=== PATIENT | female | born 1950 | race Caucasian/White ===

== ENCOUNTER → 2017-05-03 | Outpatient (CLI) | payer OTHER | END | disposition home or self-care (01) | LOC: C.PATHSPEC 14:35 | PROVIDERS: ATTEND Urology | DX: R31.0 Gross hematuria (principal) ==

== ENCOUNTER 2017-07-16 06:06 | Day surgery (SDC) | payer OTHER ==
[2017-07-03 11:17] VITALS: Ht 162.6 cm; Wt 86.6 kg
--- NOTE | 2017-07-03 12:01 | PAT Medication Instructions ---
Service Date Jul 03, 2017. Current Home Medication List Apixaban (Eliquis), 5 MG PO BID Aspirin (Aspirin Ec), 162 MG PO QAM Atorvastatin (Lipitor), 20 MG PO HS Cholecalciferol (Vitamin D3), 1 TAB PO QAM Coenzyme Q10 (Ubidecarenone) (Co Q10), 100 MG PO HS Fish Oil ([place]-3), 1 CAP PO QAM Levothyroxine Sodium (Levothyroxine Sodium), 1 TAB PO DAILYBB Lisinopril (Zestril), 10 MG PO QAM Lorazepam (Ativan), 0.5 MG PO BID PRN for PRN [Cardizem], 120 MG PO QAM Medication Instructions For Your Scheduled Surgery - Hold the following medications 3 days prior to surgery per Cardiology: Apixaban (Eliquis), 5 MG PO BID - Hold the following medications as of 07/04/17: Coenzyme Q10 (Ubidecarenone) (Co Q10), 100 MG PO HS Fish Oil ([place]-3), 1 CAP PO QAM - Hold the following medications the morning of surgery: Lisinopril (Zestril), 10 MG PO QAM Cholecalciferol (Vitamin D3), 1 TAB PO QAM - Take the following medications the morning of surgery with a sip of water OTHERWISE NOTHING TO EAT OR DRINK AFTER MIDNIGHT: [Cardizem], 120 MG PO QAM Lorazepam (Ativan), 0.5 MG PO BID PRN for PRN Levothyroxine Sodium (Levothyroxine Sodium), 1 TAB PO DAILYBB Aspirin (Aspirin Ec), 162 MG PO QAM (okay to continue per surgeon) - Take the following medications as scheduled the night before surgery: Atorvastatin (Lipitor), 20 MG PO HS Lorazepam (Ativan), 0.5 MG PO BID PRN for PRN If you have any questions please call us at [phone] or [phone] or [phone]
--- NOTE | 2017-07-03 12:48 | DIAGNOSTIC IMAGING REPORT ---
CHEST 2 VIEWS ROUTINE CLINICAL HISTORY: Preoperative chest COMPARISON STUDY: No previous studies for comparison. FINDINGS: The cardiac and mediastinal contours are normal. There is no evidence of focal pulmonary consolidation. There is no evidence of failure. No pleural effusions are visualized.[ IMPRESSION: No active disease in the chest. Electronically signed by: José Antonio White M.D. 07/03/2017 12:47 PM Dictated Date/Time: 07/03/2017 12:47 PM
[2017-07-03 12:55] LABS: BASO % 1.4 %; BASO ABS # 0.09 K/uL (0-0.2); COMPLETE YES; EOS % 3.7 %; HEMATOCRIT 38.2 % (37-47); IG% 0.2 %; LYMPH % 30.4 %; LYMPH ABS # 1.97 K/uL (1.2-3.4); MEAN CELL VOLUME 82.3 fL (80-100); MEAN CORPUSCULAR HEMOGLOBIN 25.2 pg (25-34); MEAN CORPUSCULAR HGB CONC 30.6 g/dl (32-36); MEAN PLATELET VOLUME 10.9 fL (7.4-10.4); MONO % 9.6 %; NEUT % 54.7 %; PLATELET COUNT 354 K/uL (130-400); RED BLOOD COUNT 4.64 M/uL (4.2-5.4); WHITE BLOOD COUNT 6.47 K/uL (4.8-10.8)
[2017-07-03 12:55] LABS: URINE APPEARANCE CLEAR (CLEAR); URINE BILIRUBIN NEG (NEG); URINE COLOR YELLOW; URINE NITRITE NEG (NEG); URINE PH 5.5 (4.5-7.5); URINE SPECIFIC GRAVITY 1.015 (1.000-1.030); UROBILINOGEN NEG (NEG)
[2017-07-03 13:02] LABS: MANUAL MICROSCOPIC REQUIRED? NO; REVIEW REQ? NO
[2017-07-03 13:19] LABS: BUN/CREATININE RATIO 10.5 (10-20); CALCIUM 10.4 mg/dl (8.5-10.1); CREATININE 0.96 mg/dl (0.60-1.20); POTASSIUM 4.4 mmol/L (3.5-5.1)
[~2017-07-16] VITALS: Ht 162.6 cm; Wt 86.6 kg
[~2017-07-16 06:06] MED LIST: APIX1TAB3 PO; ASPI81TA28 PO; ATOR-22 PO; CARDIZEM PO; CHOL1000 PO; CIPROFLOXACIN / D5W 400 MG IV SCH; COEN1CAP28 PO; LACTATED RINGER'S 1000ML 1,000 ML IV SCH; LACTATED RINGER'S 1000ML 500 ML IV ONE; LEVO88TA3 PO; LISI-461 PO; LORA-741 PO; OMEG10007 PO
[2017-07-16] MEDS ORDERED: EpHEDrine SULFATE INJ 50 MG/ML AMP IV PRN (06:45)
[2017-07-16] MEDS ORDERED: HYDROmorphone INJ 0.5 MG/0.5 ML SYR IV PRN (06:45)
[2017-07-16] MEDS ORDERED: FENTANYL CITRATE INJ 50 MCG/1 ML 2 ML VIAL IV PRN (06:45)
[2017-07-16] MEDS ORDERED: ONDANSETRON INJ 2 MG/ML 2 ML VIAL IV PRN (06:45)
[2017-07-16] MEDS ORDERED: ATROPINE SULFATE 0.1 MG/ML 5ML SYR IV PRN (06:45)
[2017-07-16 06:52] VITALS: BP 127/67; PULSE 75; TEMP 37.2; O2SAT 92
[2017-07-16] MEDS ORDERED: DEXAMETHASONE SOD INJ 4 MG/ML VIAL ONE (06:58)
[2017-07-16] MEDS ORDERED: FENTANYL CITRATE INJ 50 MCG/1 ML 2 ML VIAL ONE (06:58)
[2017-07-16] MEDS ORDERED: PROPOFOL IV EMULSION 10 MG/ML 20 ML VIAL IV ONE (06:58)
[2017-07-16] MEDS ORDERED: LIDOCAINE HCL 2% 2 ML VIAL (20MG/ML) ONE (06:58)
[2017-07-16] MEDS ORDERED: MIDAZOLAM HCL 1 MG/ML 2ML VIAL ONE (06:58)
[2017-07-16] MEDS ORDERED: ONDANSETRON INJ 2 MG/ML 2 ML VIAL ONE (06:58)
--- NOTE | 2017-07-16 08:21 | History & Physical Bridge Note ---
H&P Re-Evaluation Bridge Note: I have examined the patient, reviewed the History & Physical and in the interval since the performance of the History & Physical I have noted the following changes of clinical significance: No changes noted
[2017-07-16] MEDS ORDERED: EpHEDrine SULFATE 50MG/5ML SYR ONE (08:56)
[2017-07-16] MEDS ORDERED: PHENYLEPHRINE 100MCG/ML 5ML SYR ONE (08:56)
[2017-07-16] MEDS ORDERED: PHEN95TA14 PO (09:07)
[2017-07-16] MEDS ORDERED: CIPR-255 PO (09:07)
[2017-07-16] MEDS ORDERED: SODIUM CHLORIDE 0.9% 1000ML 1,000 ML IV SCH (09:08)
[2017-07-16] MEDS ORDERED: PHENAZOPYRIDINE HCL 200 MG TAB PO STA (09:08)
--- NOTE | 2017-07-16 09:08 | Discharge Instructions ---
Discharge Instructions Date of Service Jul 16, 2017. Admission Reason for Admission: Bladder Tumor Discharge Discharge Diagnosis / Problem: Bladder tumor Discharge Goals Goal(s): Decrease discomfort, Improve function, Increase independence, Improve disease control Activity Recommendations Activity Limitations: resume your previous activity Lifting Limitations: none Exercise/Sports Limitations: none May Resume Sexual Activity: when tolerated Shower/Bathe: no limitations Driving or Machine Use: resume 1 day after discharge . Instructions / Follow-Up Instructions / Follow-Up Please resume your blood thinning medications in 48 hours. Current Hospital Diet Patient's current hospital diet: Discharge Diet Recommended Diet: Regular Diet Procedures Procedures Performed: Transurethral Resection Bladder Tumor Pending Studies Studies pending at discharge: no Medical Emergencies . Who to Call and When: Medical Emergencies: If at any time you feel your situation is an emergency, please call 911 immediately. . Non-Emergent Contact Non-Emergency issues call your: Urologist Call Non-Emergent contact if: you have a fever, temperature is above 101.5, your pain is not controlled, your pain is worsening . . "Provider Documentation" section prepared by Vivek Yuan. . VTE Core Measure Inpt VTE Proph given/why not?: Other Anticoagulation
--- NOTE | 2017-07-16 09:13 | [facility] Operative Report ---
Operative Report Operative Date Jul 16, 2017. 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 Appropriate consent reviewed and completed, and the patient was transported to the operating suite where she received appropriate preoperative antibiotics and general anesthesia. She was placed in dorsal lithotomy position where she was sterilely prepped and draped in standard fashion. In the case by passing a 24 [place] resectoscope with 30 lens and visual obturator. Maximal bladder was conducted utilizing both a 30 lens and a 70 lens. Ureteral orifices were in orthotopic position and immediately lateral to the right ureteral orifice I encountered papillary appearing bladder tumor. There were 2 primary tumors, each approximately 1.5 cm in largest dimension with a carpeting of low height papillary appearing tumor between the 2. In total, I estimate a 4 cm area showed evidence of disease. Following my full inspection, I exchanged visual obturator for a resecting loop and element. I resected the 2 largest tumors and fulgurated the base of all of the small papillary fronds that were located between the 2. I ensured excellent hemostasis and irrigated all bladder tumor fragments out of the bladder and passed them off the table as a specimen. After confirming complete treatment of the tumor, I concluded the case. Patient was extubated and taken to the PACU in stable condition. I attest to the content of the Intraoperative Record and any orders documented therein. Any exceptions are noted below.
[2017-07-16] MEDS ORDERED: OXYCODONE/ACETAMINOPHEN 5-325 TAB PO PRN ×2 (09:15)
[2017-07-16] MEDS ORDERED: ACETAMINOPHEN 325 MG TAB PO PRN (09:15)
--- NOTE | 2017-07-16 09:42 | Anesthesiology Progress Note ---
Anesthesia Post Op Note Date & Time Jul 16, 2017 at 09:42 Vital Signs Pain Intensity: 0 Vital Signs Past 12 Hours Date Time Temp Pulse Resp B/P (MAP) Pulse Ox O2 Delivery O2 Flow Rate FiO2 07/16/17 09:05 36.5 84 16 114/57 97 Oxymask 7 07/16/17 06:52 37.2 75 18 127/67 (87) 92 Room Air Notes Mental Status: alert / awake / arousable, participated in evaluation Pt Amnestic to Procedure: Yes Nausea / Vomiting: adequately controlled Pain: adequately controlled Airway Patency, RR, SpO2: stable & adequate BP & HR: stable & adequate Hydration State: stable & adequate Anesthetic Complications: no major complications apparent
[2017-07-16 09:45] VITALS: BP 103/52; PULSE 62; TEMP 36.4; O2SAT 95
[2017-07-16 10:15] VITALS: BP 102/59; PULSE 63; O2SAT 96
[2017-07-16 10:35] VITALS: BP 106/55; PULSE 62; TEMP 36.4; O2SAT 95
== END 2017-07-16 10:35 | disposition home or self-care (01) ==
LOC: C.ACU 06:06
PROVIDERS: ATTEND Urology
DX: C67.2 Malignant neoplasm of lateral wall of bladder (principal); I48.91 Unspecified atrial fibrillation; I10 Essential (primary) hypertension; E03.9 Hypothyroidism, unspecified; R73.9 Hyperglycemia, unspecified; M19.90 Unspecified osteoarthritis, unspecified site; Z87.891 Personal history of nicotine dependence; Z79.899 Other long term (current) drug therapy; Z79.82 Long term (current) use of aspirin; I25.10 Atherosclerotic heart disease of native coronary artery without angina pectoris; F41.9 Anxiety disorder, unspecified; F95.2 Tourette's disorder